=== PATIENT | female | born 1990 | race American Indian/Alaskan Native ===

== ENCOUNTER 2017-06-14 13:21 | Outpatient (CLI) | payer OTHER | END 2017-06-14 19:30 | disposition home or self-care (01) | LOC: OBS/DEL 13:21 | DX: O26.893 Other specified pregnancy related conditions, third trimester (principal); Z04.3 Encounter for examination and observation following other accident; O47.1 False labor at or after 37 completed weeks of gestation; W18.39XA Other fall on same level, initial encounter; Y93.89 Activity, other specified; Y92.098 Other place in other non-institutional residence as the place of occurrence of the external cause; Y99.8 Other external cause status ==

== ENCOUNTER 2017-06-23 19:38 | Outpatient (CLI) | payer OTHER | END 2017-06-24 12:14 | disposition home or self-care (01) | LOC: OBS/DEL 19:38 | DX: O23.43 Unspecified infection of urinary tract in pregnancy, third trimester (principal); O60.03 Preterm labor without delivery, third trimester; Z34.83 Encounter for supervision of other normal pregnancy, third trimester ==

== ENCOUNTER 2017-06-29 09:01 | Outpatient (CLI) | payer OTHER | END 2017-06-29 17:03 | disposition home or self-care (01) | LOC: OBS/DEL 09:01 | DX: O47.1 False labor at or after 37 completed weeks of gestation (principal); O26.893 Other specified pregnancy related conditions, third trimester; R10.9 Unspecified abdominal pain; Z34.83 Encounter for supervision of other normal pregnancy, third trimester ==

== ENCOUNTER 2017-08-19 20:02 | Inpatient (IN) | payer OTHER ==
[~2017-08-19] VITALS: Ht 162.6 cm; Wt 168.0 kg
[2017-08-19] MEDS ORDERED: PRENATABS RX T1 EACH PO (20:16)
== END 2017-08-22 20:13 | DRG 775 ==
LOC: LDR 20:02 → OB/GYN 20:02
PROC: 0HQ9XZZ Repair Perineum Skin, External Approach (ICD-10-PCS; principal; 2017-08-19)
PROC: 10E0XZZ Delivery of Products of Conception, External Approach (ICD-10-PCS; 2017-08-19)
PROC: 4A1HXCZ Monitoring of Products of Conception, Cardiac Rate, External Approach (ICD-10-PCS; 2017-08-19)
DX: O70.0 First degree perineal laceration during delivery (principal); Z3A.39 39 weeks gestation of pregnancy; Z37.0 Single live birth